=== PATIENT | male | born 1955 | race Caucasian/White ===

== ENCOUNTER → 2022-01-19 | Outpatient (CLI) | payer OTHER ==
[2022-01-28 07:43] LABS: AMPHETAMINES, URINE Negative; BARBITURATE Negative; BENZODIAZEPINES Negative; CANNABINOIDS Negative; COCAINE (METABOLITE) Negative; OPIATES Negative
[2022-01-28 07:44] LABS: CREATININE 155.4 mg/dL; MEPERIDINE Negative; METHADONE Negative; PHENCYCLIDINE Negative; PROPOXYPHENE Negative
== END ==
LOC: LAB 21:20
PROVIDERS: Pathology Anatomic Pathology & Clinical Pathology
DX: Z53.9 Procedure and treatment not carried out, unspecified reason (principal)
CPT/HCPCS: 80307